=== PATIENT | male | born 1940 | race Hispanic/Latino ===

== ENCOUNTER 2018-05-31 23:50 | Emergency (ER) | payer MEDICARE, OTHER, BC ==
[2018-06-01 00:17] VITALS: TEMP 98; O2SAT 99
--- NOTE | 2018-06-01 01:07 | ED PDOC ---
HPI: Back Time Seen by Provider: 06/01/18 00:49 Chief Complaint (Nursing): Back Pain Chief Complaint (Provider): low back pain History Per: Patient History/Exam Limitations: no limitations Onset/Duration Of Symptoms: Days (1) Current Symptoms Are (Timing): Still Present Exacerbating Factor(s): Turning, Movement Additional Complaint(s): 77 y/o male presents for evaluation of acute on chronic low back pain x 1 day. Patient states he has history of herniated discs in his lumbar spine from years ago; states every now and then he gets exacerbations of pain. Patient states he has not had imaging on his back for over 10 years, requesting xray. Denies new trauma, fever, nausea/vomiting, chest pain, abdominal pain, numbness/weakness lower extremities, bowel/bladder incontinence, urinary symptoms. Past Medical History Reviewed: Historical Data, Nursing Documentation, Vital Signs Vital Signs: Last Vital Signs Temp 98 F 06/01/18 00:16 Pulse 60 06/01/18 00:16 Resp 18 06/01/18 00:16 BP 127/67 06/01/18 00:16 Pulse Ox 99 06/01/18 00:16 - Medical History PMH: CAD, HTN, Hypercholesterolemia - Family History Family History: States: No Known Family Hx - Living Arrangements Living Arrangements: Alone - Social History Current smoker - smoking cessation education provided: No Alcohol: None Drugs: Denies - Allergies Allergies/Adverse Reactions: Allergies Allergy/AdvReac Type Severity Reaction Status Date / Time prochlorperazine Allergy RASH Verified 06/01/18 00:15 [From Compazine] Review of Systems ROS Statement: Except As Marked, All Systems Reviewed And Found Negative Musculoskeletal: Positive for: Back Pain Physical Exam - Reviewed Nursing Documentation Reviewed: Yes Vital Signs Reviewed: Yes - Physical Exam Appears: Positive for: Well, Non-toxic, No Acute Distress (sleeping) Head Exam: Positive for: ATRAUMATIC, NORMAL INSPECTION, NORMOCEPHALIC Skin: Positive for: Normal Color Cardiovascular/Chest: Positive for: Regular Rate, Rhythm Respiratory: Positive for: Normal Breath Sounds Gastrointestinal/Abdominal: Positive for: Normal Exam Back: Positive for: Vertebral Tenderness (diffuse lspine; no skin changes, bony deformity), Muscle Spasm (bilateral lspine paravertebral tenderness). Negative for: L CVA Tenderness, R CVA Tenderness, Decreased ROM Extremity: Positive for: Normal ROM Neurologic/Psych: Positive for: Alert, Oriented (x3). Negative for: Motor/Sensory Deficits - ECG O2 Sat by Pulse Oximetry: 99 - Other Rad xray lspine X-Ray: Viewed By Me X-Ray Interpretation: DDD; no acute findings - Progress ED Course And Treament: -xray lspine Patient declines pain medication at this time Patient educated on findings, discharged with instructions to follow up PMD within 2-3 days Advised Tylenol PRN pain Return precautions given Disposition - Clinical Impression Clinical Impression: Acute exacerbation of chronic low back pain - Patient ED Disposition Is Patient to be Admitted: No Counseled Patient/Family Regarding: Studies Performed, Diagnosis, Need For Followup - Disposition Disposition: Routine/Home Disposition Time: 03:00 Condition: IMPROVED Instructions: Low Back Pain in Adults Forms: [facility] (Cuban)
[2018-06-01 06:59] VITALS: BP 124/62; PULSE 72; RESP 16
--- NOTE | 2018-06-01 09:45 | RAD ---
Date of service: 06/01/2018 PROCEDURE: Radiographs of the Lumbar Spine. HISTORY: acute on chronic back pain COMPARISON: No prior. FINDINGS: BONES: Normal alignment. No listhesis. No fracture. DISC SPACES: Disc space narrowing at L4-5 and L5-S1 with spondylosis. OTHER FINDINGS: None. IMPRESSION: No acute fracture.
== END 2018-06-01 06:59 | disposition home or self-care (01) ==
LOC: H.ER 23:50
DX: M54.5 Low back pain (principal); G89.29 Other chronic pain; I10 Essential (primary) hypertension